=== PATIENT | female | born 1960 | race Caucasian/White ===

== ENCOUNTER 2019-01-06 21:17 | Inpatient (IN) | payer MEDICARE, MEDICAID ==
[~2019-01-06] VITALS: Ht 168.9 cm; Wt 97.0 kg
[~2019-01-06 21:17] MED LIST: CALC0.25 PO; CITA20TA9 PO; ERGO500017 PO; MAGN400T36 PO; SERT50TA28 PO
--- NOTE | 2019-01-06 21:40 | NUR ---
RECEIVED REPORT FROM [facility], PATIENT TRANSFERRED [facility] C/O SEVERE ABDOMINAL PAIN. PERITONEAL DIALYSIS ACCESS PLACED 3 WEEKS AGO IN THIS HOSPITAL AND SINCE THEN PATIENT HAVING ABDOMINAL PAIN. TODAY PAIN WORSE AND STAR VOMITING.
[2019-01-06] MEDS ORDERED: HYDROmorphone 1 MG/ML, 1ML VIAL ONE (21:41)
[2019-01-06] MEDS ORDERED: ONDANSETRON 2MG/ML, 2ML ONE (21:41)
--- NOTE | 2019-01-06 21:42 | NUR ---
ERP AT BEDSIDE.
--- NOTE | 2019-01-06 21:45 | NUR ---
PATIENT MEDICATED FOR PAIN AND NAUSEA.
[2019-01-06] MEDS ORDERED: HYDROmorphone 1 MG/ML, 1ML AMP IV ONE (22:00)
[2019-01-06] MEDS ORDERED: ONDANSETRON 2MG/ML, 2ML IVPush ONE (22:00)
[2019-01-06] MEDS ORDERED: ONDANSETRON 2MG/ML, 2ML IVPush PRN (23:30)
[2019-01-06] MEDS ORDERED: HYDROmorphone 1 MG/ML, 1ML AMP IVPush PRN (23:30)
--- NOTE | 2019-01-06 23:31 | NUR ---
BED ASSIGNED. REPORT TO DEREK MEJIA.
[2019-01-07] MEDS ORDERED: ONDANSETRON 2MG/ML, 2ML IVPush PRN
[2019-01-07] MEDS ORDERED: MORPHINE MC SCH (00:30)
[2019-01-07] MEDS: PIPERACILLIN/TAZO/PMX 3.375GM 50 ML IV SCH ×2 (01:13→08:47)
[2019-01-07] MEDS: morphine SULFATE 10 MG/ML, 1ML IVPush PRN ×5 (01:24→20:52)
[2019-01-07 01:30] VITALS: BP 111/73
[2019-01-07 04:53] LABS: BASOPHILS # (AUTO) 0.01 x10^3/uL (0-0.1); BASOPHILS % (AUTO) 0 % (0-1); EOSINOPHILS # (AUTO) 0.04 x10^3/uL (0-0.4); EOSINOPHILS % (AUTO) 1 % (1-7); LYMPHOCYTES # (AUTO) 0.83 x10^3/uL (1-3.4); LYMPHOCYTES % (AUTO) 10 % (22-44); MD NO; MEAN CORPUSCULAR HEMOGLOBIN 30.5 pg (27.0-34.8); MEAN CORPUSCULAR HGB CONC 33.2 g/dL (32.4-35.8); MEAN CORPUSCULAR VOLUME 91.9 fL (80-100); MEAN PLATELET VOLUME 7.2 fL (7.4-10.4); MONOCYTES # (AUTO) 0.44 x10^3/uL (0.2-0.8); MONOCYTES % (AUTO) 5 % (2-9); NEUTROPHILS # (AUTO) 6.84 x10^3/uL (1.8-6.8); NEUTROPHILS % (AUTO) 84 % (42-75); PLATELET COUNT 292 x10^3/uL (130-400); RED BLOOD COUNT 2.92 x10^6/uL (3.82-5.3); RED CELL DISTRIBUTION WIDTH 15.4 % (9.6-15.2)
[2019-01-07 05:04] LABS: INTERNATIONAL NORMALIZED RATIO 0.98 (0.93-1.1); PROTHROMBIN TIME 10.3 Seconds (9.6-11.5)
[2019-01-07 05:07] LABS: ANION GAP 8 mmol/L (5-15); CALCIUM 9.2 mg/dL (8.5-10.1); CHLORIDE 104 mmol/L (98-107); CREATININE 3.82 mg/dL (0.55-1.02)
[2019-01-07 07:32] VITALS: BP 99/66
[2019-01-07 12:56] VITALS: BP 99/61
[2019-01-07] MEDS: PIPERACILLIN/TAZO/PMX 2.25GM 50 ML IV SCH (17:30)
[2019-01-07 20:24] VITALS: BP 95/59
[2019-01-08] MEDS: morphine SULFATE 10 MG/ML, 1ML IVPush PRN ×3 (00:35→04:13)
[2019-01-08] MEDS: PIPERACILLIN/TAZO/PMX 2.25GM 50 ML IV SCH ×2 (00:35→08:48)
[2019-01-08 01:19] VITALS: BP 99/62
[2019-01-08 05:10] LABS: BASOPHILS # (AUTO) 0.03 x10^3/uL (0-0.1); BASOPHILS % (AUTO) 0 % (0-1); EOSINOPHILS # (AUTO) 0.16 x10^3/uL (0-0.4); EOSINOPHILS % (AUTO) 2 % (1-7); LYMPHOCYTES # (AUTO) 0.51 x10^3/uL (1-3.4); LYMPHOCYTES % (AUTO) 7 % (22-44); MD NO; MEAN CORPUSCULAR HEMOGLOBIN 30.9 pg (27.0-34.8); MEAN CORPUSCULAR HGB CONC 33.3 g/dL (32.4-35.8); MEAN CORPUSCULAR VOLUME 92.9 fL (80-100); MEAN PLATELET VOLUME 7.7 fL (7.4-10.4); MONOCYTES # (AUTO) 0.59 x10^3/uL (0.2-0.8); MONOCYTES % (AUTO) 8 % (2-9); NEUTROPHILS # (AUTO) 6.01 x10^3/uL (1.8-6.8); NEUTROPHILS % (AUTO) 82 % (42-75); PLATELET COUNT 285 x10^3/uL (130-400); RED BLOOD COUNT 2.73 x10^6/uL (3.82-5.3)
[2019-01-08 05:16] LABS: CHLORIDE 99 mmol/L (98-107)
[2019-01-08 05:20] LABS: ANION GAP 8 mmol/L (5-15); CREATININE 3.39 mg/dL (0.55-1.02)
[2019-01-08 08:37] VITALS: BP 96/63
[2019-01-08] MEDS: FENTANYL PF 100 MCG/2ML IV PRN ×3 (09:45→20:26)
[2019-01-08 13:08] VITALS: BP 100/66
[2019-01-08] MEDS: PIPERACILLIN/TAZO/PMX 3.375GM 50 ML IV SCH (17:39)
[2019-01-08 19:03] VITALS: BP 99/65
[2019-01-09] MEDS: PIPERACILLIN/TAZO/PMX 3.375GM 50 ML IV SCH ×2 (01:55→09:37)
[2019-01-09] MEDS: FENTANYL PF 100 MCG/2ML IV PRN ×2 (01:56→06:22)
[2019-01-09 02:40] VITALS: BP 100/64
[2019-01-09] MEDS ORDERED: BUPIVACAINE/PF 0.25% ONE (06:10)
[2019-01-09] MEDS ORDERED: HEPARIN 1,000 UNITS/ML, 10ML ONE (06:10)
[2019-01-09] MEDS ORDERED: EPINEPHRINE 1 MG/ML, 1ML ONE (06:11)
[2019-01-09] MEDS ORDERED: FENTANYL PF 100 MCG/2ML ONE (06:49)
[2019-01-09] MEDS ORDERED: MIDAZOLAM 1 MG/ML, 2ML ONE (06:49)
[2019-01-09] MEDS ORDERED: SUCCINYLCHOLINE 20 MG/ML, 10ML ONE (07:14)
[2019-01-09] MEDS ORDERED: CEFAZOLIN 1,000 MG ONE (07:14)
[2019-01-09] MEDS ORDERED: PHENYLEPHRINE 10 MG/ML ONE (07:14)
[2019-01-09] MEDS ORDERED: ONDANSETRON 2MG/ML, 2ML ONE (07:14)
[2019-01-09] MEDS ORDERED: DEXAMETHASONE 4 MG/ML, 1ML ONE (07:14)
[2019-01-09] MEDS ORDERED: PROPOFOL 10 MG/ML, 20ML ONE (07:14)
[2019-01-09] MEDS ORDERED: PROMETHAZINE 25 MG/ML, 1ML IV PRN (08:00)
[2019-01-09] MEDS ORDERED: MEPERIDINE/PF 25MG/0.5ML IVPush PRN (08:00)
[2019-01-09] MEDS ORDERED: FENTANYL PF 100 MCG/2ML IV PRN (08:00)
[2019-01-09] MEDS ORDERED: hydrALAzine 20 MG/ML, 1ML IV PRN (08:00)
[2019-01-09] MEDS ORDERED: HALOPERIDOL 5 MG/ML IV PRN (08:00)
[2019-01-09] MEDS ORDERED: ACETAMINOPHEN 325 MG TABLET PO PRN (08:00)
[2019-01-09] MEDS ORDERED: OXYcodone 5 MG/5 ML ORAL.SOL UDC PO PRN (08:00)
[2019-01-09] MEDS ORDERED: HYDROmorphone 2 MG/ML, 1ML IVPush PRN (08:00)
[2019-01-09 08:32] VITALS: BP 105/6
[2019-01-09 15:21] VITALS: BP 114/74
[2019-01-09] MEDS ORDERED: OXYC-302 PO (16:01)
== END 2019-01-09 16:17 | disposition home or self-care (01) | DRG 981 ==
LOC: ED 21:47 → EDIP 23:05 → 4NOR 01-07 00:38 → DCLOUNGE 01-09 16:00
PROVIDERS: ADMIT Internal Medicine; ATTEND Internal Medicine
PROC: 5A1D70Z Performance of Urinary Filtration, Intermittent, Less than 6 Hours Per Day (ICD-10-PCS; 2019-01-07)
PROC: 5A1D70Z Performance of Urinary Filtration, Intermittent, Less than 6 Hours Per Day (ICD-10-PCS; 2019-01-08)
PROC: 0WPG03Z Removal of Infusion Device from Peritoneal Cavity, Open Approach (ICD-10-PCS; principal; 2019-01-09 07:00)
DX: T85.611A Breakdown (mechanical) of intraperitoneal dialysis catheter, initial encounter (principal); N18.6 End stage renal disease; N13.6 Pyonephrosis; T85.848A Pain due to other internal prosthetic devices, implants and grafts, initial encounter; F32.9 Major depressive disorder, single episode, unspecified; D63.1 Anemia in chronic kidney disease; Y81.2 Prosthetic and other implants, materials and accessory general- and plastic-surgery devices associated with adverse incidents; Z80.49 Family history of malignant neoplasm of other genital organs; Z82.49 Family history of ischemic heart disease and other diseases of the circulatory system; Z85.41 Personal history of malignant neoplasm of cervix uteri; Z92.21 Personal history of antineoplastic chemotherapy; Z92.3 Personal history of irradiation; Z99.2 Dependence on renal dialysis; Y92.89 Other specified places as the place of occurrence of the external cause
CPT/HCPCS: 36415; 80048; 85025; 85610; 87070; 87077; 87186; 87205; 93005; 96374; 96375; 99285; G0378; J0171; J0690; J1100; J1170; J1644; J2250; J2405; J2543; J2704; J3010; J3490; J0330; J2270; J2370

== ENCOUNTER 2021-01-17 15:40 | Inpatient (IN) | payer MEDICARE, MEDICAID ==
[~2021-01-17] VITALS: Ht 168.9 cm; Wt 103.0 kg
[~2021-01-17 15:40] MED LIST changes: +OXYC1TAB14 PO
[2021-01-17] MEDS ORDERED: FURO-93 PO (16:11)
[2021-01-17 16:14] VITALS: BP 100/71
[2021-01-17] MEDS ORDERED: FLUO10CA13 PO (16:27)
[2021-01-17] MEDS ORDERED: CHLORHEXIDINE 15 ML UDC PO ONE (16:30)
[2021-01-17] MEDS ORDERED: SODIUM CHLORIDE 0.9% 1,000 ML IV SCH (16:30)
[2021-01-17] MEDS ORDERED: PLEASE ENTER HEIGHT AND WEIGHT MC SCH (16:30)
[2021-01-17] MEDS ORDERED: FENTANYL PF 100 MCG/2ML ONE (17:11)
[2021-01-17 17:19] LABS: ALANINE AMINOTRANSFERASE 46 U/L (12-78); ALBUMIN 2.9 g/dL (3.4-5.0); ANION GAP 14 mmol/L (5-15); CALCIUM 9.7 mg/dL (8.5-10.1); CHLORIDE 97 mmol/L (98-107)
[2021-01-17 17:22] LABS: ALKALINE PHOSPHATASE 82 U/L (45-117); BILIRUBIN,TOTAL 0.3 mg/dL (0.2-1.0); CREATININE 4.61 mg/dL (0.55-1.02); TOTAL PROTEIN 7.4 g/dL (6.4-8.2)
[2021-01-17 19:57] VITALS: BP 105/69
[2021-01-17] MEDS ORDERED: POTASSIUM CHLORIDE 40 MEQ in SODIUM CHLORIDE 0.9% 500 ML IV ONE (21:00)
[2021-01-17] MEDS ORDERED: POTASSIUM CHLORIDE 20 MEQ TAB.ER.PRT PO ONE (21:00)
[2021-01-17] MEDS: OXYcodone/APAP 5/325MG TABLET PO PRN (22:13)
[2021-01-18 02:18] VITALS: BP 106/70
[2021-01-18] MEDS: OXYcodone/APAP 5/325MG TABLET PO PRN ×2 (05:55→12:17)
[2021-01-18 07:16] VITALS: BP 97/66
[2021-01-18 08:36] LABS: BASOPHILS % (AUTO) 1 % (0-1); EOSINOPHILS % (AUTO) 2 % (1-7); LYMPHOCYTES % (AUTO) 17 % (22-44); MEAN CORPUSCULAR HEMOGLOBIN 33.1 pg (27.0-34.8); MEAN CORPUSCULAR HGB CONC 33.3 g/dL (32.4-35.8); MEAN PLATELET VOLUME 8.1 fL (7.4-10.4); MONOCYTES % (AUTO) 10 % (2-9); NEUTROPHILS % (AUTO) 70 % (42-75); PLATELET COUNT 395 x10^3/uL (130-400); RED CELL DISTRIBUTION WIDTH 14.9 % (9.6-15.2)
[2021-01-18 08:38] LABS: ANION GAP 11 mmol/L (5-15); CALCIUM 9.4 mg/dL (8.5-10.1); CHLORIDE 100 mmol/L (98-107)
[2021-01-18 08:45] LABS: MD NO
[2021-01-18] MEDS ORDERED: FUROSEMIDE 20 MG TABLET PO SCH (09:00)
[2021-01-18] MEDS ORDERED: MAGNESIUM OXIDE 400 MG TABLET PO SCH (09:00)
[2021-01-18] MEDS ORDERED: FLUOXETINE 10 MG CAP PO SCH (09:00)
[2021-01-18] MEDS ORDERED: POTASSIUM CHLORIDE 20 MEQ TAB.ER.PRT PO ONE (09:30)
[2021-01-18] MEDS ORDERED: POTASSIUM CHLORIDE 20 MEQ in SODIUM CHLORIDE 0.9% 250 ML IV ONE ×2 (09:30→15:30)
[2021-01-18 13:36] VITALS: BP 104/64
[2021-01-18 14:32] LABS: ANION GAP 9 mmol/L (5-15); CALCIUM 9.4 mg/dL (8.5-10.1); CHLORIDE 101 mmol/L (98-107); CREATININE 3.92 mg/dL (0.55-1.02)
[2021-01-18] MEDS ORDERED: MAGNESIUM SULFATE PMX 2GM/50ML 50 ML IV ONE (15:30)
[2021-01-18] MEDS ORDERED: CHLORHEXIDINE 15 ML UDC ONE (15:34)
[2021-01-18] MEDS ORDERED: CHLORHEXIDINE 15 ML UDC PO ONE (16:00)
[2021-01-18] MEDS ORDERED: MIDAZOLAM 1 MG/ML, 2ML ONE (16:43)
[2021-01-18] MEDS ORDERED: OMNIPAQUE 350 MG/ML, 50 ML BOTTLE ONE (17:01)
[2021-01-18] MEDS ORDERED: POTA20TA6 PO (17:19)
[2021-01-18] MEDS ORDERED: OMNIPAQUE 350 MG/ML, 50 ML BOTTLE IV ONE (17:20)
[2021-01-18] MEDS ORDERED: PROMETHAZINE 25 MG/ML, 1ML IV PRN (17:30)
[2021-01-18] MEDS ORDERED: MEPERIDINE/PF 25MG/0.5ML IVPush PRN (17:30)
[2021-01-18] MEDS ORDERED: DIAZEPAM 5 MG/ML, 2ML IV PRN ×2 (17:30)
[2021-01-18] MEDS ORDERED: HYDROmorphone 1 MG/ML, 1ML INJ IV PRN (17:30)
[2021-01-18] MEDS ORDERED: FENTANYL PF 100 MCG/2ML IV PRN (17:30)
[2021-01-18] MEDS ORDERED: OXYcodone 5 MG/5 ML ORAL.SOL UDC PO PRN (17:30)
[2021-01-18] MEDS ORDERED: ALBUTEROL SULFATE 2.5 MG/3 ML NPPB PRN (17:30)
[2021-01-18] MEDS ORDERED: ONDANSETRON 2MG/ML, 2ML IVPush PRN (17:30)
[2021-01-18] MEDS ORDERED: hydrALAzine 20 MG/ML, 1ML IV PRN (17:30)
[2021-01-18] MEDS ORDERED: KETOROLAC 30 MG/1 ML IV PRN (17:30)
[2021-01-18] MEDS ORDERED: LABETALOL 5MG/ML, 20ML IV PRN (17:30)
== END 2021-01-18 18:26 | disposition left against medical advice (07) | DRG 660 ==
LOC: OR 15:40 → 4NE 18:26 → OR 19:45
PROVIDERS: ADMIT Urology; ATTEND Family Medicine
PROC: BT141ZZ Fluoroscopy of Kidneys, Ureters and Bladder using Low Osmolar Contrast (ICD-10-PCS; 2021-01-18)
PROC: 0TP98DZ Removal of Intraluminal Device from Ureter, Via Natural or Artificial Opening Endoscopic (ICD-10-PCS; 2021-01-18)
PROC: 0T788DZ Dilation of Bilateral Ureters with Intraluminal Device, Via Natural or Artificial Opening Endoscopic (ICD-10-PCS; principal; 2021-01-18 16:00)
DX: N13.30 Unspecified hydronephrosis (principal); I12.0 Hypertensive chronic kidney disease with stage 5 chronic kidney disease or end stage renal disease; E87.6 Hypokalemia; N18.6 End stage renal disease; Z99.2 Dependence on renal dialysis; D63.1 Anemia in chronic kidney disease; Z85.41 Personal history of malignant neoplasm of cervix uteri; Z92.21 Personal history of antineoplastic chemotherapy; Z92.3 Personal history of irradiation; M48.00 Spinal stenosis, site unspecified; F32.9 Major depressive disorder, single episode, unspecified; F41.9 Anxiety disorder, unspecified; Z88.5 Allergy status to narcotic agent; Z20.822 Contact with and (suspected) exposure to COVID-19
CPT/HCPCS: 36415; 74420; 80048; 80053; 83735; 85025; 87635; G0378; J2250; J3010; J3480; Q9967; C2617; J7040; J7050